=== PATIENT | male | born 1960 | race Caucasian/White ===

== ENCOUNTER 2017-10-27 05:24 | Day surgery (SDC) | payer OTHER ==
[2017-10-25 12:34] VITALS: BMI 25.0
[~2017-10-27 05:24] MED LIST: BUPIVACAINE HCL/PF (5 MG/ML) 30 ML VIAL IJ ONE
[2017-10-27] MEDS ORDERED: BUPIVACAINE HCL/PF 0.5% (5MG/ML) 10 ML VIAL ONE (07:15)
[2017-10-27] MEDS ORDERED: MIDAZOLAM HCL 2 MG/2 ML SINGLE DOSE VIAL ONE (07:53)
[2017-10-27] MEDS ORDERED: PROPOFOL 20 ML ONE ×2 (07:53)
[2017-10-27] MEDS ORDERED: ACETAMINOPHEN 500 MG TABLET (FP) PO PRN (08:11)
--- NOTE | 2017-10-27 08:18 | HP ---
Satellite [facility] - Chief Complaint Chief Complaint: right knee pain History of Present Illness: right knee pain, medial meniscus tear History Source: Patient Limitations to Obtaining History: No Limitations - Past Medical History Allergies/Adverse Reactions: Allergies Allergy/AdvReac Type Severity Reaction Status Date / Time No Known Allergies Allergy Verified 10/27/17 06:25 - Current Medications Current Medications: Home Medications Medication Instructions Recorded NK [No Known Home Medication] 10/25/17 Satellite Physical Exam - Physical Examination Vital Signs: Vital Signs Period Temp Pulse Resp BP Sys/Peck Pulse Ox Last 24 Hr 98.8 F 67 16 132/82 99 General Appearance: Well Nourished ENT: Clear Lung: Clear to auscultation Heart: Regular rate & rhythm Breasts: Soft Abdomen: Soft Extremities: No edema Satellite Impression/Plan - Impression/Plan Impression: right knee pain, medial mensicus tear Operative Procedure: right knee arthroscopy Date to be Performed: 10/27/17
[2017-10-27] MEDS ORDERED: KETOROLAC TROMETHAMINE 30 MG/1 ML VIAL ONE (08:44)
[2017-10-27] MEDS ORDERED: ceFAZolin SODIUM 1 GM VIAL ONE (08:44)
[2017-10-27] MEDS ORDERED: BUPIVACAINE HCL/PF (5 MG/ML) 30 ML VIAL IJ ONE (08:56)
--- NOTE | 2017-10-27 09:09 | OP ---
Operative Note - Note: Operative Date: 10/27/17 Pre-Operative Diagnosis: right knee pain, medial meniscus tear Operation: right knee arthroscopy, partial medial meniscectomy, debridement chondroplasty Post-Operative Diagnosis: Same as Pre-op Surgeon: Brock Tapia Anesthesiologist/BEATER WORKER HELPER: Debra Holguin Anesthesia: General, Local Specimens Removed: shavings Estimated Blood Loss (mls): 0 Drains, Volume Out (mls): 0 Fluid Volume Replaced (mls): 500 Operative Report Dictated: Yes
--- NOTE | 2017-10-27 09:54 | OP ---
DATE OF OPERATION: 10/27/2017 PREOPERATIVE DIAGNOSIS: Right knee pain, medial meniscus tear. POSTOPERATIVE DIAGNOSIS: Right knee pain, medial meniscus tear. PROCEDURE: Right knee arthroscopy, partial medial meniscectomy and debridement chondroplasty. SURGEON: Brock Tapia M.D. ASSISTANTS: None. ANESTHESIOLOGIST: Debra Pandey MD ANESTHESIA: LMA anesthesia with intra-articular injection 20 mL 0.5% Marcaine and 1% lidocaine mix. DRAINS: None. COMPLICATIONS: None. SPECIMENS: Arthroscopic shavings. BLOOD LOSS: None. BLOOD GIVEN: None. DESCRIPTION: This patient is a 57-year-old male with the preoperative diagnosis of right knee pain and a medial meniscus tear. After understanding the potential risks, complications, alternatives, benefits of surgery, versus non-surgical treatment, the patient elected to undergo this procedure. The patient was brought to the operating room, peripheral IV placed, IV sedation was given, 1 g of IV Ancef was given. LMA anesthesia was induced. Ample Webril was placed around the right thigh and the Styrofoam ring was applied. The right lower extremity was placed in the C-clamp leg kunz. It was prepped and draped in sterile fashion, elevated, exsanguinated with Esmarch bandage and the tourniquet inflated to 275 mmHg. A superior medial outflow portal was established. A lateral portal was established. A diagnostic arthroscopy was performed. The medial portal was established under direct visualization using a spinal needle. In the medial compartment, patient had grade 1 changes of the medial tibial plateau and a large radial tear at the junction of the posterior horn and body of the medial meniscus. Photographs were taken. Area was probed. Unfortunately, the tear went all the way to the periphery disrupting all the hoop fibers. Using a combination of the right biter and straight basket forceps and curved shaver, I did a partial medial meniscectomy. As I mentioned, all the hoop fibers were disrupted. Photographs were taken before and after. The intercondylar notch looked good. The ACL looked good and had the appropriate tension. The lateral compartment looked pristine. Photographs were taken. 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 A gentle chondroplasty was performed. Some synovectomy and excessive fat pad was removed as well. The area was copiously irrigated and washed out. All instrumentation and saline removed. The arthroscopy portals were closed with 3-0 nylon sutures; 20 mL 0.5% Marcaine was introduced into the joint. The area was then washed and dried, covered with Xeroform, 4x4 gauze, Webril and a 6-inch Raphael bandage. The tourniquet was taken down after a total tourniquet time of 17 minutes. There were no complications during the case. The patient tolerated the procedure well and was brought to the Ambulatory recovery room in stable condition. Elia [id number]
[2017-10-27 10:02] VITALS: TEMP 97.7
[2017-10-27] MEDS ORDERED: oxyCODONE HCL 5 MG TABLET PO PRN (10:23)
[2017-10-27] MEDS ORDERED: LACTATED RINGERS SOLUTION 1,000 ML IV SCH (10:30)
[2017-10-27 11:25] VITALS: BP 132/86; PULSE 65
--- NOTE | 2017-10-28 12:47 | PATH ---
Surgical Pathology Report Patient Name: BEENA GIORDANO [facility]. Rec. #: [id number] /Age/Gender: 1960 (Age: 57) / M Account: [id number] Location: [facility] SURGICAL Taken: 10/27/2017 Received: 10/27/2017 Reported: 10/28/2017 Physicians: Brock Tapia M.D. Specimen(s) Received RIGHT KNEE SHAVINGS Clinical History Right knee medial meniscus tear Final Diagnosis RIGHT KNEE, SHAVINGS: SYNOVIAL TISSUE WITH REACTIVE CHANGES AND FIBROSIS. SEPARATE FIBROCARTILAGINOUS TISSUE WITH DEGENERATIVE CHANGE. Electronically Signed Shira Ayon M.D. Gross Description Received in formalin, labeled "right knee shaving," is a 4.5 x 4.0 x 0.5 cm. aggregate of hartley-yellow soft tissue fragments. A sales representative facility services portion is submitted in one cassette. /10/27/201710/27/2017
== END 2017-10-27 11:15 | disposition home or self-care (01) ==
LOC: JASU-SURG 05:24
PROVIDERS: ATTEND Orthopaedic Surgery
PROC: 0SBC4ZZ Excision of Right Knee Joint, Percutaneous Endoscopic Approach (ICD-10-PCS; principal; 2017-10-27 08:00)
DX: M25.561 Pain in right knee (principal); S83.241A Other tear of medial meniscus, current injury, right knee, initial encounter
CPT/HCPCS: 82962; 88304-TC; 94760